=== PATIENT | male | born 1955 | race Caucasian/White ===

== ENCOUNTER 2018-08-01 08:48 | Emergency (ER) | payer OTHER ==
[~2018-08-01] VITALS: Ht 185.4 cm; Wt 104.3 kg
--- NOTE | 2018-08-01 09:21 | RAD ---
EXAM: Right long finger, 3 views. HISTORY: Laceration. COMPARISON: None. FINDINGS: 3 views of the right long finger are obtained. There has been partial amputation of the tuft of the third distal phalanx and overlying soft tissues. There are small surrounding displaced third distal phalanx fracture fragments. There are tiny ossicles adjacent to the first interphalangeal joint and third proximal interphalangeal joint. There is spurring along the second and third distal interphalangeal joints. IMPRESSION: 1. Partial amputation of the tuft of the third distal phalanx and overlying soft tissues. There are small surrounding displaced third distal phalanx fracture fragments. 2. Degenerative changes involving the first interphalangeal joint, second and third distal interphalangeal joint and third proximal interphalangeal joint. Electronically signed by: Carissa Hansen MD (08/01/2018 9:18 AM) [id number]
--- NOTE | 2018-08-01 09:39 | PHYS DOC ---
Past Medical History Past Medical History: High Cholesterol, Hypotension Alcohol Use: Rarely Drug Use: None Adult General Chief Complaint Chief Complaint: FINGER INJURY HPI HPI Patient is a 63 year old male with history of high cholesterol who presents with partial amputation of the distal middle finger. 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 He states his tetanus is up-to-date last administered 2 years ago. Review of Systems Review of Systems Constitutional: Denies fever or chills [] Musculoskeletal: Right middle finger partial amputation Integument: Denies rash or skin lesions [] Neurologic: Denies headache, focal weakness or sensory changes [] All other systems were reviewed and found to be within normal limits, except as documented in this note. Current Medications Current Medications Current Medications Medications (Trade) Dose Ordered Sig/Shawanda Start Time Stop Time Status Last Admin Dose Admin Piperacillin Sod/ Tazobactam Sod 3.375 gm/Sodium Chloride 50 ml @ 100 mls/hr 1X ONCE 08/01/18 09:15 08/01/18 09:44 UNV Allergies Allergies Allergies Coded Allergies Type Severity Reaction Last Updated Verified No Known Drug Allergies 08/01/18 No Physical Exam Physical Exam Constitutional: Well developed, well nourished, no acute distress, non-toxic appearance. [] Back: No tenderness, no CVA tenderness. [] Extremities: Amputation of the distal end of the right middle finger with the bone showing. Full range of motion to the right middle finger, patient able to flex and extend the finger at all the joints. Adequate radial, medial sensation to the right middle finger. +2 right radial pulse. Cap refill less than 2 seconds the right middle finger. Neurologic: Alert and oriented X 3, normal motor function, normal sensory function, no focal deficits noted. [] Psychologic: Affect normal, judgement normal, mood normal. [] Current Patient Data Vital Signs Vital Signs Date Time Temp Pulse Resp B/P (MAP) Pulse Ox O2 Delivery O2 Flow Rate FiO2 08/01/18 08:55 97.9 61 16 137/97 (110) 96 Room Air 97.9 EKG EKG [] Radiology/Procedures Radiology/Procedures []PROCEDURE: FINGER(S) RIGHT EXAM: Right long finger, 3 views. HISTORY: Laceration. COMPARISON: None. FINDINGS: 3 views of the right long finger are obtained. There has been partial amputation of the tuft of the third distal phalanx and overlying soft tissues. There are small surrounding displaced third distal phalanx fracture fragments. There are tiny ossicles adjacent to the first interphalangeal joint and third proximal interphalangeal joint. There is spurring along the second and third distal interphalangeal joints. IMPRESSION: 1. Partial amputation of the tuft of the third distal phalanx and overlying soft tissues. There are small surrounding displaced third distal phalanx fracture fragments. 2. Degenerative changes involving the first interphalangeal joint, second and third distal interphalangeal joint and third proximal interphalangeal joint. Electronically signed by: Carissa Hansen MD (08/01/2018 9:18 AM) [id number] DICTATED and SIGNED BY: CARISSA HANSEN MD DATE: 08/01/18 0915 Course & Med Decision Making Course & Med Decision Making Pertinent Labs and Imaging studies reviewed. (See chart for details) This is a 63-year-old male patient presented to the ED today with a chop edition of the right middle finger. Patient's right middle finger was caught in machine at work. Patient is right-handed. Tetanus is up to date X-rays of the right middle finger were noted for partial amputation of the tuft of the third distal phalanx and overlying soft tissues. There are small surrounding displaced third distal phalanx fracture fragments. Zosyn ordered in the Ed. 0930 called transfer line. Images were clouded before the call [address] Cory Dhaliwal hand surgeon at through the ED. Will transport by POV. Sonia Disclaimer Dragandre Disclaimer This electronic medical record was generated, in whole or in part, using a voice recognition dictation system. Departure Departure Impression: Primary Impression: Open fracture of tuft of distal phalanx of finger Disposition: 05 TRANSFER OTHER Condition: STABLE NAYEKAILEY STACY Aug 01, 2018 09:39
[2018-08-01] MEDS: PIPERACILLIN/TAZOBACTAM 3.375 GM in IV NORMAL SALINE 50ML 50 ML IV ONE (09:59)
[2018-08-01 10:56] VITALS: BP 160/90
== END 2018-08-01 11:04 | disposition short-term general hospital (02) ==
LOC: ER 08:48
DX: S62.632B Displaced fracture of distal phalanx of right middle finger, initial encounter for open fracture (principal); I10 Essential (primary) hypertension; E78.00 Pure hypercholesterolemia, unspecified; W23.0XXA Caught, crushed, jammed, or pinched between moving objects, initial encounter; Y93.89 Activity, other specified; Y92.69 Other specified industrial and construction area as the place of occurrence of the external cause; Y99.0 Civilian activity done for income or pay
CPT/HCPCS: 73140; 96365; 99285; J2543